=== PATIENT | male | born 1975 | race Caucasian/White ===

== ENCOUNTER 2023-10-01 14:14 | Emergency (ER) | payer OTHER, SELFPAY ==
[2023-10-01 14:18] VITALS: BP 136/83
[2023-10-01 14:49] LABS: % Basophils 0.5 % (0-2); % Immature Granulocytes 0.2 % (0-0.5); % Lymphocytes 20.9 % (20.5-51.1); % Monocytes 3.8 % (1.7-9.3); % Neutrophils 73.6 % (42.2-75.2); Absolute Eosinophils 0.1 10^3/uL (0-0.7); Absolute Lymphocytes 1.7 10^3/uL (1.2-3.4); Absolute Monocytes 0.3 10^3/uL (0.1-0.6); Absolute Neutrophils 6.1 10^3/uL (1.4-6.5); Hematocrit 44.9 % (39.0-52.0); Hemoglobin 14.7 g/dL (13.0-18.0); Mean Corp Hgb Conc. 32.7 g/dL (33.0-37.0); Mean Corpuscular Hgb 27.8 pg (27.0-31.0); Mean Corpuscular Volume 84.9 fL (80.0-94.0); Mean Platelet Volume 12.3 fL (7.4-10.4); Nucleated Red Blood Cells % 0 % (-); Platelet Count 232 10^3/uL (130-400); Red Blood Cell Count 5.29 10^6/uL (4.70-6.10); Red Cell Dist. Width 12.8 % (11.5-14.5); White Blood Cell Count 8.3 10^3/uL (4.8-10.8)
[2023-10-01 14:53] LABS: ALT (SGPT) 21 U/L (0-50); AST (SGOT) 19 U/L (17-59); Albumin 4.7 g/dl (3.5-5.0); Alkaline Phosphatase 76 U/L (38-126); Blood Urea Nitrogen 11 mg/dl (9-20); Calcium 9.6 mg/dl (8.4-10.2); Carbon Dioxide 29 mmol/L (22-30); Chloride 104 mmol/L (98-107); Glucose 151 mg/dl (70-99); Potassium 4.2 mmol/L (3.5-5.1); Sodium 138 mmol/L (135-145); Total Bilirubin 0.5 mg/dl (0.2-1.3); Total Protein 7.3 g/dl (6.3-8.2); eGFR > 60.00
[2023-10-01 15:22] VITALS: BP 139/81
[2023-10-01 15:23] VITALS: BMI 29.3
--- NOTE | 2023-10-01 15:23 | ED.GENMED ---
History of Present Illness
General
Chief Complaint: Weakness
Source: patient
Exam Limitations: none
Time Seen by Provider: 10/01/23 15:13
Nursing documentation reviewed up to this point in time: agreed with
Travel History
Have you had any contact with someone who has COVID-19?: No
Do you have any symptoms of coronavirus? Fever > 100 degrees, chills, cough, shortness of breath, sore throat, loss of taste or smell, muscle aches, or headache?: No
History of Present Illness
History of Present Illness:
48-year-old male with a past medical history of depression, distant history of opioid use currently on Suboxone who presents to the emergency room for evaluation of fatigue, lethargy, weight loss. Patient reports that this has been ongoing issue
for the past few years he says he has had lethargy and fatigue. Says that over the past year it seems to have gotten worse and over the past few months he has noticed decreased appetite and approximately 50 pound weight loss over the past 4 months.
He says he has a very poor appetite. He says that he does not have a primary care physician and today decided 'enough is enough' and came to the emergency room to seek care. He has not had any specific symptoms such as cough, fever, chills, chest
pain, abdominal pain, nausea, vomiting. He has chronic issues with constipation as he is on Suboxone for distant history of opioid abuse. He is a longtime smoker. He denies any current drug use and denies any alcohol use.
Past History
Past History
ED Past Medical History: Negative Asthma, HTN, Hypercholesterolemia or NIDDM
ED Past Surgical History: None
Social History
Tobacco: Former smoker
Alcohol: None
Personal:
Living: with family
Review of Systems
Review of Systems
All Other Systems: ROS reviewed and negative except as documented in HPI and ROS
Constitutional: Reports fatigue; Denies fever or chills
EENT: Denies sore throat or runny nose
Respiratory: Denies cough or trouble breathing
Cardiac: Denies chest pain or palpitations
ABD/GI: Reports constipated and anorexia; Denies abdominal pain, nausea, vomiting or diarrhea
: Denies flank pain
Musculoskeletal: Denies neck pain or back pain
Neurological: Denies headache, weakness or numbness
Phy Exam
Physical Exam
Physical Exam:
General: Awake, alert, oriented x3; no acute distress
Head: Normocephalic, atraumatic
Eyes: Conjunctiva normal, EOMI
Throat: Airway intact, handling secretions
Neck: Trachea midline, supple without meningismus
Lungs: Clear to auscultation bilaterally, no wheezing, rales, rhonchi
Heart: Regular rate and rhythm, no murmurs, gallops, or rubs
Abd: Soft, non distended, nontender
Neuro: Cranial nerves grossly intact, speech fluid
Skin: no rash
Extremities: No edema in extremities, equal pulses in all extremities
Scores
Heart Failure Risk
Heart Failure Risk Score: Not Applicable
Heart Score for Chest Pain Patients
STEMI patient?: Not applicable
Withdrawal Assessment of Alcohol
Withdrawal Assessment Completed?: Not applicable
Course
Orders/Labs/Results
Orders:
Orders
10/01/23 14:23
Bedside Glucose- Treatment ONCE
10/01/23 14:31
CMP [Comprehensive Metabolic Panel] Urgent
Complete Blood Count/With Diff Urgent
10/01/23 15:22
Electrocardiogram (*1) Urgent
Reason for Study: Fatigue / Weakness
EKG- Treatment ONCE
CR Chest - 2 Views Urgent
Comment:
Reason For Exam: weight loss, lethergy in long time smoker
10/01/23 15:35
Hemoglobin A1c [Glycohemoglobin (HgbA1c)] Urgent
TSH Reflex To Free T4 Urgent
Abnormal Lab Results
10/01/23 10/01/23
14:31 15:46
MCHC 32.7 L g/dL
(33.0-37.0)
MPV 12.3 H fL
(7.4-10.4)
Glucose 151 H mg/dl
(70-99)
POC Glucose 110 H mg/dl
(70-99)
10/01/23 14:31
10/01/23 14:31
Vital Signs
Initial and Last Documented VS:
Initial Vital Signs
Temp Pulse Resp BP Pulse Ox
36.9 C 86 18 136/83 99
10/01/23 14:18 10/01/23 14:18 10/01/23 14:18 10/01/23 14:18 10/01/23 14:18
Last Documented Vital Signs
Temp Pulse Resp BP Pulse Ox
36.9 C 66 17 139/81 97
10/01/23 14:18 10/01/23 15:30 10/01/23 15:22 10/01/23 15:22 10/01/23 15:30
MDM/Problems Addressed
Differential Diagnosis Includes:
Differential diagnosis is extremely wide and includes but is not limited to: Cancer, thyroid dysfunction, anemia, electrolyte derangement, diabetes, depression, nutritional deficiencies, cardiac arrhythmia
MDM/Problems Addressed:
48-year-old male presents for evaluation of chronic fatigue now having progressive loss of appetite, weight loss over the past 4 to 6 months. He does not have a primary doctor and finally decided to seek care today in the emergency room for help.
His vital signs are all normal. Exam as above. Plan to check labs including CBC and CMP. Will check thyroid studies. Check an EKG. Check a screening chest x-ray as he is a longtime smoker to screen for any signs of nodules or malignancy. Will
monitor closely and reassess after the above�if ED workup negative he will need close outpatient follow-up with a primary physician.
Labs reviewed: CBC unremarkable shows no anemia; CMP shows random hyperglycemia to 151 otherwise unremarkable. Added hemoglobin A1c. Chest x-ray shows no acute disease on my review. EKG shows sinus rhythm. Vitals have remained stable. No clear
emergent pathology at this point�he will need close outpatient follow-up but no clear indication for admission to the hospital at this point in time. I had a long discussion with the patient, reached out to our coordinator to facilitate PCP
follow-up. He feels very comfortable with this plan. Spoke about return precautions and all questions answered.
Chronic conditions affecting care:
Depression
*Radiology
Radiology exam reviewed: radiology read reviewed
*Pulse Oximetry
Patient hypoxic: no
*Critical Care Note
Total Time (30-74mins, 75-104mins- exclusive of procedures): Not Applicable
Data Reviewed
Review of Other/Old Records Reveals: Labs
Source: patient and records
ED Attending Note
-
Portions of this chart may have been created with voice recognition software.� Occasional wrong word or��sound alike� substitutions may have occurred due to the inherent limitations of voice recognition software.
Discharge Plan
Departure
Patient Disposition: Home (Routine Discharge)
Date of Disposition: 10/01/23
Time of Disposition: 16:38
Patient with high blood pressure during this ER visit?: No
Discharge Problem:
Fatigue, Weight loss, Hyperglycemia
Instructions: Generalized Weakness (DC)
Prescriptions:
No Action
tramadol 300 MG tablet extended release 24 hr
300 mg PO BID
prednisone 20 MG tablet
40 mg PO DAILY Qty: 10 0RF
doxycycline hyclate 100 MG capsule
100 mg PO Q12 Qty: 20 0RF
albuterol sulfate 1 PUFF HFA aerosol inhaler
2 puff inhalation R [id number] PRN (Reason: SOB, Wheezing) Qty: 1 0RF
Referrals:
NONE,* [Family Provider] -
Activity Restrictions/Additional Instructions:
Thank you for visiting the Emergency Department at [facility].
1. Please schedule a follow up appointment as directed. Call first thing tomorrow morning to make an appointment.
2. If indicated, please take your medications as instructed and indicated on discharge paperwork.
3. If any of your symptoms do not improve, or persist, or become more severe within 6-12 hours, please return to the emergency department for further care.
4. Please return to the emergency department if you develop a headache, neck pain/stiffness, fever greater than 100.4F, chest pain, shortness of breath, persistent nausea, vomiting, slurred speech, difficulty walking, numbness/tingling, weakness,
signs of infection or any other symptoms that are worrisome to you.
Please call [phone] if you have any questions.
Interventions
Interventions:
*Risk Screen - Suicide Last Done: 10/01/23 14:18
*General Assessment Last Done: 10/01/23 14:18
*Neglect/Abuse Screening Last Done: 10/01/23 14:18
ED- Fall Risk Assessment Last Done: 10/01/23 15:44
*ED COVID-19 Vaccine History Last Done: 10/01/23 14:18
ED- Cardiac Assessment Last Done: 10/01/23 15:44
ED- Neurological Assessment Last Done: 10/01/23 15:44
ED- Pulmonary Assessment Last Done: 10/01/23 15:44
Discharge Date and Time
Print Language: THAI
[2023-10-01 15:51] LABS: Glucose - Point of Care 110 mg/dl (70-99)
[2023-10-01 16:42] VITALS: BP 124/77
[2023-10-02 10:36] LABS: Glycohemoglobin (HgbA1c) 5.7 % (4.0-5.6)
== END 2023-10-01 17:41 | disposition home or self-care (01) ==
LOC: EMR 14:14
PROVIDERS: Emergency Medicine; EMERGENCY PHYSICIAN Emergency Medicine
DX: R53.83 Other fatigue (principal); R63.4 Abnormal weight loss; R73.9 Hyperglycemia, unspecified; R53.1 Weakness; K59.00 Constipation, unspecified; F17.200 Nicotine dependence, unspecified, uncomplicated
CPT/HCPCS: 99283; 71046; 80053; 82962; 83036; 84443; 85025; 93005

== ENCOUNTER → 2023-10-24 11:24 | Outpatient (REF) | payer OTHER, SELFPAY | LOC: RAD 11:24 | PROVIDERS: ATTENDING PHYSICIAN Nurse Practitioner Family | DX: R63.4 Abnormal weight loss (principal); M54.9 Dorsalgia, unspecified; M54.50 Low back pain, unspecified | CPT/HCPCS: 71260; 74177; Q9967 ==

== ENCOUNTER → 2023-10-26 17:36 | Outpatient (REF) | payer OTHER, SELFPAY | LOC: MRI 3T 17:36 | PROVIDERS: ATTENDING PHYSICIAN Nurse Practitioner Family | DX: R79.89 Other specified abnormal findings of blood chemistry (principal) | CPT/HCPCS: 70553; A9575 ==